=== PATIENT | male | born 1995 | race Caucasian/White ===

== ENCOUNTER 2018-09-07 05:56 | Emergency (ER) | payer OTHER ==
[2018-09-07 06:04] VITALS: BP 111/79
--- NOTE | 2018-09-07 06:15 | EDPHY ---
H & P Stated Complaint: fall, head lac, denies LOC Time Seen by Provider: 09/07/18 05:58 HPI/ROS: HPI: The patient presents brought in by ambulance after sustaining a scalp laceration which occurred just prior to arrival. The patient had been up drinking alcohol, multiple drinks throughout the course of the evening into the [facility]. He went outside to smoke a cigarette and fell backwards, hitting his head on concrete. He did not have any subsequent loss of consciousness, vomiting, headache, changes in vision. REVIEW OF SYSTEMS 10 systems were reviewed and negative with the exception of the elements mentioned in the history of present illness. PMHx: Healthy TRAUMA PHYSICAL General Appearance: Alert, no distress Head: Atraumatic Eyes: Pupils equal, round, reactive Neck: Non- tender, trachea midline Respiratory: No chest wall tenderness, no subcutaneous air, lungs clear bilaterally Cardiovascular: Regular rate and rhythm Abdomen: Abdomen is soft and non-tender, pelvis stable Skin: There is a 2 cm longitudinal scalp laceration in his mid occipital scalp which is non gaping with no hematoma Back: No midline T/L/S pain Extremities: Non-tender, full range of motion Neurological: A&Ox3, GCS=15,normal motor function with 5/5 strength in all 4 extremities, normal sensory exam Source: Patient, EMS Exam Limitations: Intoxication - Personal History Current Tetanus/Diphtheria Vaccine: Yes - Medical/Surgical History Hx Asthma: No Hx Chronic Respiratory Disease: No Hx Diabetes: No Hx Cardiac Disease: No Hx Renal Disease: No Hx Cirrhosis: No Hx Alcoholism: No Hx HIV/AIDS: No Hx Splenectomy or Spleen Trauma: No Other PMH: denies - Social History Smoking Status: Heavy smoker Constitutional: Initial Vital Signs Temperature (C) 36.2 C 09/07/18 05:58 Heart Rate 77 09/07/18 05:58 Respiratory Rate 16 09/07/18 05:58 Blood Pressure 111/79 09/07/18 05:58 O2 Sat (%) 99 09/07/18 05:58 O2 Delivery Mode Room Air Allergies/Adverse Reactions: No Known Allergies Allergy (Unverified 09/07/18 06:02) Home Medications: Medication Instructions Recorded NK [No Known Home Meds] 09/07/18 Medical Decision Making Procedures: LACERATION REPAIR Procedure: Laceration repair. Verbal consent was obtained from the patient. The linear 2 cm laceration on the occipital scalp was not anesthetized. The wound was scrubbed, draped and explored to its base with a gloved finger. There were no deep structures involved. No tendon injury was identified. The wound required extensive debridement . The wound was repaired with 2 nash. The wound repair was simple. The procedure was performed by myself. Differential Diagnosis: 23-year-old male presents with scalp laceration after a fall in the setting of alcohol intoxication. He does not have any persistent headache, vomiting, behavioral change, vision change. There is no scalp hematoma. Plan for treatment with nash. Departure - Departure Disposition: Home, Routine, Self-Care Clinical Impression: Occipital scalp laceration Qualifiers: Encounter type: initial encounter Qualified Code(s): S01.01XA - Laceration without foreign body of scalp, initial encounter Alcohol intoxication Qualifiers: Complication of substance-induced condition: uncomplicated Qualified Code(s): F10.920 - Alcohol use, unspecified with intoxication, uncomplicated Condition: Good Instructions: At-Risk Alcohol Use (ED), Staple Care (ED), Head Injury (ED) Additional Instructions: You should return to the emergency department in 10 days to have your nash removed. Referrals: NICHOLAS Diamond,. [Clinic] - As per Instructions
== END 2018-09-07 06:49 | disposition home or self-care (01) ==
PROC: 0HQ0XZZ Repair Scalp Skin, External Approach (ICD-10-PCS; principal; 2018-09-07)
DX: S01.01XA Laceration without foreign body of scalp, initial encounter (principal); F10.920 Alcohol use, unspecified with intoxication, uncomplicated; F17.200 Nicotine dependence, unspecified, uncomplicated; W19.XXXA Unspecified fall, initial encounter